=== PATIENT | male | born 1990 | race Caucasian/White ===

== ENCOUNTER 2017-01-05 01:20 | Emergency (ER) | payer SELFPAY | END 2017-01-05 01:39 | disposition left against medical advice (07) | LOC: EMS 01:22 | DX: F41.9 Anxiety disorder, unspecified (principal) ==

== ENCOUNTER 2017-01-08 08:03 | Emergency (ER) | payer MEDICAID ==
[~2017-01-08] VITALS: Ht 165.1 cm; Wt 56.8 kg
[2017-01-08 09:44] VITALS: BP 100/61
== END 2017-01-08 10:23 | disposition home or self-care (01) ==
LOC: EMS 08:04 → EEVIPCON 08:04 → EMS 10:23
DX: Z02.89 Encounter for other administrative examinations (principal); F17.210 Nicotine dependence, cigarettes, uncomplicated; F11.90 Opioid use, unspecified, uncomplicated
CPT/HCPCS: 74000; 99283